=== PATIENT | female | born 1950 | race Caucasian/White ===

== ENCOUNTER 2018-06-24 06:23 | Day surgery (SDC) | payer MEDICARE, OTHER ==
[2018-06-24] VITALS (12 sets, daily range): BP systolic 115–166; BP diastolic 57–84; PULSE 64–92; RESP 12–24; Ht 152.4 cm; Wt 66.4 kg
[~2018-06-24] VITALS: Ht 152.4 cm; Wt 66.4 kg
--- NOTE | 2018-06-24 06:32 | PREOPHP ---
DATE OF ADMISSION: 06/24/2018 HISTORY OF PRESENT ILLNESS: A 68-year-old patient is going to be admitted for diagnostic arthroscopy of the right knee, partial medial lateral meniscectomy, possible repair, synovectomy, chondroplasty, possible microfracture, application of ____. This patient has been experiencing knee pain for quite a while. Conservative treatment resulted in l imited benefit to the patient. The patient has requested surgical intervention. PAST MEDICAL HISTORY: Unremarkable. SOCIAL HISTORY: Nonsmoker, nondrinker. FAMILY HISTORY: None. ALLERGIES: NO HISTORY OF ALLERGY TO MEDICATION. MEDICATIONS: 1. Lasix. 2. Lipitor. 3. Vitamin D. 4. Sulindac. 5. Folic acid, B6, B12. 6. Bactrim-DS postop and prescribe ____. PHYSICAL EXAMINATION: VITAL SIGNS: Height of 54, weighing 146 pounds. SKIN: Within normal limits. ENT: PERRLA. HEAD AND NECK: Normocephalic. Trachea midline. Bilateral symmetrical carotid pulses. No mass, no bruit, no lymphadenopathy. CARDIOVASCULAR: Normal sinus rhythm. S1, S2 normal. No murmur, no JVD, no peripheral edema. LUNGS: Clear. ABDOMEN: Soft. No organomegaly. Normal bowel sounds present. GENITOURINARY AND RECTAL: Not done, not pertinent to this admission. MUSCULOSKELETAL: Cervical spine indicates close to normal range of motion and slight tenderness over the sternocleidomastoid, trapezius muscle. Right shoulder shows slight muscle atrophy. Range of mo tion around 80% with tenderness over the anterior glenohumeral joint, subacromial space. Positive im pingement, positive Folcroft test. Rest of the upper extremities seems to be normal with normal range of motion. Lumbar spine shows minimal ____ muscle spasm, mild tenderness over the L4-L5 and L5-S1 f acet joints. Right knee shows minimal muscle atrophy and range of motion 0 to 120 degrees. There is tenderness over the posteromedial and medial tibiofemoral joint line. There is a normal muscle atro phy. No instability can be detected. Positive Livan sign. There is slight synovitis and effusio n present. Right knee shows torn medial meniscus ____. Treatment plan, alternatives, risks and benefits discussed. The patient understands possible complic ations from surgery such as infection, ____, possibility of deep venous thrombosis, pulmonary embolis m, hypersensitivity from medication, and even . [place] result may not be obtained depending on a ctual findings, known or unknown factor or factors. No guarantee is being made. Formal H and P supp osed to be done by PCP. Dictated By: BLESSING LEE/PIPER Conf#: [id number] DID#: [id number]
[2018-06-24] MEDS ORDERED: EPINEPHrine 1 MG/ML 30 ML INJ IRR SCH (07:00)
[2018-06-24] MEDS ORDERED: PYRI50TA15 PO (08:31)
[2018-06-24] MEDS ORDERED: ATOR10TA65 PO (08:31)
[2018-06-24] MEDS ORDERED: CHOL100062 PO (08:32)
[2018-06-24] MEDS ORDERED: CYAN100T PO (08:32)
[2018-06-24] MEDS ORDERED: morphine SULFATE/PF (10 MG/10 ML) INJ ONE ×2 (11:17→11:38)
--- NOTE | 2018-06-24 12:02 | PREAC ---
Date/Time of Note Date/Time of Note DATE: 06/24/18 TIME: 12:00 Anesthesia Eval and Record Evaluation Time Pre-Procedure Interview DATE: 06/24/18 TIME: 12:00 Age 68 Sex female NPO: 8 hrs Preoperative diagnosis Rt knee Torn meniscus, synovitis Planned procedure Rt knee arthroscopy Past Medical History Past Medical History: Includes Cardio: Dyslipidemia GI: Morbid obesity Surgery & Anesthesia Issues No known issue Meds Anticoagulation: No Beta Jeny within 24 hr: No Reason Beta Jeny not given: Pt. not on B-Jeny Reported Medications Cholecalciferol* (Vitamin D3*) 1,000 Unit Tablet, 1000 UNIT PO DAILY, TAB 06/24/18 Cyanocobalamin* (Vitamin B12*) 100 Mcg Tab, 100 MCG PO DAILY, TAB 06/24/18 Pyridoxine Hcl (Vitamin B6) 50 Mg Tab, 50 MG PO DAILY, TAB 06/24/18 Atorvastatin Calcium (Atorvastatin Calcium) 10 Mg Tablet, 10 MG PO QHS, #30 TAB 06/24/18 Meds reviewed: Yes Allergies Coded Allergies: No Known Allergy (Unverified , 06/24/18) Allergies Reviewed: Yes Labs/Studies Labs Reviewed: Reviewed by anesthesiologist test: N/A Studies: ECG Pre-procedure Exam Last vitals Vital Signs Date Temp Pulse Resp B/P (MAP) Pulse Ox O2 O2 Flow FiO2 Time Delivery Rate 06/24/18 98.2 71 16 166/84 98 Room Air 08:59 (111) Airway: Adequate mouth opening, Adequate thyromental dist Mallampati: Mallampati II Teeth: Normal Lung: Normal Heart: Normal ASA Physical Status ASA physical status: 3 Emergency: None Planned Anesthetic General/MAC: LMA Planned Pain Management Parenteral pain med, Local by surgeon Pre-operative Attestations Prior to commencing anesthesia and surgery, the patient was re-evaluated, there was verification of: *The patient's identity *The results of appropriate recent lab work and preoperative vital signs *The above evaluation not changing prior to induction *Anesthetic plan, risk benefits, alternative and complications discussed with patient/family; questions answered; patient/family understands, accepts and wishes to proceed. TOSHIA DUNCAN MD June 24, 2018 12:02
[2018-06-24] MEDS ORDERED: MIDAZOLAM 1 MG/ML 2 ML INJ ONE (12:04)
[2018-06-24] MEDS ORDERED: FENTAnyl 50 MCG/ML VIAL ONE (12:35)
[2018-06-24] MEDS ORDERED: CEFAZOLIN 1 GM INJ ONE (12:55)
[2018-06-24] MEDS ORDERED: PROPOFOL 20 ML ONE (12:55)
[2018-06-24] MEDS ORDERED: LIDOCAINE 2% (SDV) 5 ML INJ ONE (12:55)
[2018-06-24] MEDS ORDERED: ONDANSETRON 4 MG INJ ONE (12:56)
--- NOTE | 2018-06-24 13:11 | SIPON ---
Date/Time of Note Date/Time of Note DATE: 06/24/18 TIME: 13:07 Operative Report Preoperative Diagnosis Right knee torn medial and lateral meniscus plus synovitis Postoperative Diagnosis The same Operation/Procedure Performed Daignostic scope, partial medial and lateral meniscectomy, synovectomy and applicatiojn of Hu dressing Surgeon Blessing Luong MD assistant none Anesthesia: general Estimated blood loss: minimal Transfusion Required none Specimen None Grafts/Implants none Complications none BLESSING LUONG MD June 24, 2018 13:11
--- NOTE | 2018-06-24 13:13 | PAC ---
Date/Time of Note Date/Time of Note DATE: 06/24/18 TIME: 13:12 Post-Anesthesia Notes Post-Anesthesia Note Last documented vital signs Vital Signs Date Temp Pulse Resp B/P (MAP) Pulse Ox O2 O2 Flow FiO2 Time Delivery Rate 06/24/18 98.2 71 16 166/84 98 Room Air 08:59 (111) Activity: WNL Respiratory function: WNL Cardiovascular function: WNL Mental status: Baseline Pain reasonably controlled: Yes Hydration appropriate: Yes Nausea/Vomiting absent: Yes Comments BP:127/68, P:78, Spo2:100%, T:98,8 TOSHIA DUNCAN MD June 24, 2018 13:13
[2018-06-24] MEDS ORDERED: LABETALOL HCL 20MG INJ IV PRN (13:30)
[2018-06-24] MEDS ORDERED: MEPERIDINE 25 MG INJ IV PRN (13:30)
[2018-06-24] MEDS ORDERED: HYDROmorphONE 1 MG/5 ML IV SYRINGE IV PRN ×2 (13:30)
[2018-06-24] MEDS ORDERED: METOCLOPRAMIDE 10 MG INJ IV PRN (13:30)
[2018-06-24] MEDS ORDERED: HYDROCODONE/APAP (5/325) TAB PO PRN (13:30)
[2018-06-24] MEDS ORDERED: FENTAnyl 50 MCG/ML VIAL IV PRN (13:30)
[2018-06-24] MEDS ORDERED: DIPHENHYDRAMINE 50 MG INJ IV PRN (13:30)
[2018-06-24] MEDS ORDERED: ONDANSETRON 4 MG INJ IV PRN (13:30)
--- NOTE | 2018-06-24 15:38 | OPR ---
DATE OF OPERATION: 06/24/2018 PREOPERATIVE DIAGNOSES: 1. Torn medial meniscus. 2. Torn lateral meniscus. 3. Synovitis, right knee. POSTOPERATIVE DIAGNOSES: 1. Torn medial meniscus. 2. Torn lateral meniscus. 3. Synovitis, right knee. OPERATION PERFORMED: Diagnostic arthroscopy, partial medial meniscectomy, partial lateral meniscecto my, synovectomy, application of Hu dressing. ANESTHESIA: General. ANESTHESIOLOGIST: Sherif Vernon MD BLEEDING: Minimal. COMPLICATIONS: None. OPERATIVE PROCEDURE IN DETAILS: The patient was transferred to the operating room and placed on the table in supine position. General anesthesia was induced. A 2 grams of Ancef was given IV. Right l ower extremity was prepped and draped in the routine fashion. Landmarks were marked through 2 regula r to anterior portals, 1 medial and 1 lateral to parapatella tendon. Operative arthroscopy was comme nced. Examination of suprapatellar pouch indicated mild synovitis and was coagulated with ArthroCare Bovie. 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 The patella was engaging at 35-degree in trochlear groove. There was absence of loose b kain in the medial and lateral gutter. Going to medial compartment, the articular surface was good. There was some grade III chondromalacia on the lateral part of the medial femoral condyle which was c orresponding with flap tear which was at the root; therefore, partial medial meniscectomy to stable m argins was done and slight synovitis which was present anteriorly was also coagulated . ACL was intact. Mild synovitis was seen in the intercondylar notch which was coagulated. Lateral compartme nt indicated synovitis anteriorly which was coagulated. There was a flap tear of the anterior horn a nd also was flap tear at the posterior root, which was trimmed to stable margins. Reminder of both m edial and lateral meniscus was intact on the periphery. Knee was evacuated from debris with copious amounts of saline solution. Portal was closed with benzoin and Steri-Strips. A 10 mg Duramorph mixe d with 10 mL of injectable saline was injected into the knee. Sterile Hu dressing was applied. P rocedure was terminated. General anesthesia was stopped. The patient was taken to recovery room in good and stable condition. Dictated By: BLESSING LEE/PIPER Conf#: [id number] DID#: [id number]
== END 2018-06-24 14:45 | disposition home or self-care (01) ==
LOC: SDS 06:23
PROVIDERS: ATTEND Internal Medicine Endocrinology, Diabetes & Metabolism
DX: S83.241A Other tear of medial meniscus, current injury, right knee, initial encounter (principal); S83.281A Other tear of lateral meniscus, current injury, right knee, initial encounter; M65.9 Synovitis and tenosynovitis, unspecified; E78.5 Hyperlipidemia, unspecified; E66.01 Morbid (severe) obesity due to excess calories; X58.XXXA Exposure to other specified factors, initial encounter; Y92.89 Other specified places as the place of occurrence of the external cause; Y93.89 Activity, other specified; Y99.8 Other external cause status
CPT/HCPCS: 29880; C1713; J0171; J0690; J2250; J2274; J2405; J3010